=== PATIENT | female | born 1965 | race Caucasian/White ===

== ENCOUNTER 2017-03-19 18:08 | Emergency (ER) | payer OTHER ==
[~2017-03-19] VITALS: Ht 172.7 cm; Wt 75.0 kg
[2017-03-19 18:29] VITALS: BP 116/71; PULSE 81; RESP 16; O2SAT 98
--- NOTE | 2017-03-19 19:05 | ED.REPORT ---
HPI-Extremity Problem Lower Date of Service Mar 19, 2017 ED Provider: History of Present Illness: left knee swollen with pain behind left knee. no injuryon light duty primary care is emmaismael. 11/03. Has been on going for 2 days. 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 Ambulatory Status Independent Review of Systems Basic Review of Systems Eyes: Vision NL, No discharge : No dysuria, No frequency Psychiatric: Normal thought content Physical Exam Initial Vital Signs Vital Signs (First) Date Time Temp Pulse Resp B/P Pulse Ox O2 Delivery O2 Flow Rate FiO2 03/19/17 18:29 36.7 81 16 116/71 98 Room Air Initial VS: Reviewed, Vital signs normal General/Constitutional: Well-developed, Well-nourished Head / Eyes: Atraumatic, Normocephalic, PERRL ENT: Mucous membranes moist, Conjunctiva normal, No scleral icterus Neck: Supple, Non-tender, Full range of motion Respiratory: Breath sounds normal, Clear to auscultation, No respiratory distress Cardiovascular: Regular rate & rhythm, Heart sounds normal, Intact distal pulses Abdomen / GI: Soft, Non-tender, No guarding, No rebound, No distention Back: No CVA tenderness Lymphatic: No lymphadenopathy Upper Extremities: Vascular intact, Neuro intact, No swelling, No tenderness Skin: Warm, Dry, No cyanosis Neurologic: Alert, Oriented, Nonfocal Psychiatric: Mood/affect normal, Behavior normal, Normal thought content left knee with palpable swelling in posterior of knee with small extension into medial muscle compartment General/Constitutional: Awake, Alert, No acute distress Respiratory / Chest: Atraumatic, Breath sounds NL, Breath sounds = bilat, No respiratory distress Interpretation & Diagnostics US Soft Tissue/Musculoskeletal TECHNIQUE: Real-time imaging, as well as color and pulse Doppler interrogation, were performed of the lower extremity deep veins from the inguinal ligament to the popliteal fossa. COMPARISON: None. FINDINGS: The deep veins are normally compressible, and free of intraluminal thrombus. Color and pulse Doppler demonstrate normal phasic intraluminal flow. There is normal augmentation response to distal compression maneuver. Heteroechogenicity in the popliteal fossa is present measuring 5.2 x 3.0 x 1.4 cm. IMPRESSION: No deep venous cyst. Mclaughlin cyst, likely complex is noted. Dictated by: Monie Lundy M.D. on 03/19/2017 at 19:18 Approved by: Monie Lundy M.D. on 03/19/2017 at 19:19 Re-Eval/Medical Decision Med Decision/Clinical Course 52 year old female presents with swelling in left knee and lower leg. Ongoing for 2 days. Denies injury. US indicates a mclaughlin's cyst. No sign of clot formation. Discharge & Departure Impression: Primary Impression: Mclaughlin's cyst of knee Laterality: left Qualified Code: M71.22 - Synovial cyst of popliteal space [ Mclaughlin], left knee Disposition: Home Patient Instructions: Bakers Cyst (ED) Additional Instructions: The ultrasound shows that you have a Mclaughlin's cyst of the knee. It does not show any sign of a clot. Use ibuprofen 800 mg 3 times a day for 7 days. Elevate the leg as much as possible. Use ice 15 minutes on and 15 minutes off for 4 to 5 days. Return if the area gets red liike a sunburn or hot like a sunburn. Please call your ortho provider to see if they can do an injection in the knee. I am sorry this is happening. Referrals: Raffy Delarosa MD (PCP) EDSupervising Provider for APC: Hansel Meneses MD Attending Statement I saw and evaluated the patient in conjunction with the BENDING PRESS OPERATOR. I agree with the plan and findings as documented above. In brief, 52-year-old female presenting to the ED for evaluation of left knee pain. Well appearing, no acute distress. Nonlabored respirations. Good peripheral perfusion. Neurovascularly intact. Mclaughlin's cyst on ultrasound. Given above, plan discharge home w/ careful return precautions, close outpatient follow up. Patient agreeable to plan as stated, no further questions. copies to: Raffy Delarosa MD, [facility] Mar 19, 2017 19:05 Hansel Meneses MD Mar 19, 2017 19:34
--- NOTE | 2017-03-19 19:21 | DRSVH ---
PROCEDURE: US VEINOUS LEG DUPLEX UNILATERAL, LEFT INDICATIONS: left leg swelling TECHNIQUE: Real-time imaging, as well as color and pulse Doppler interrogation, were performed of the lower extr emity deep veins from the inguinal ligament to the popliteal fossa. COMPARISON: None. FINDINGS: The deep veins are normally compressible, and free of intraluminal thrombus. Color and pu lse Doppler demonstrate normal phasic intraluminal flow. There is normal augmentation response to di stal compression maneuver. Heteroechogenicity in the popliteal fossa is present measuring 5.2 x 3.0 x 1.4 cm. IMPRESSION: No deep venous cyst. Mclaughlin cyst, likely complex is noted. Dictated by: Monie Lundy M.D. on 03/19/2017 at 19:18 Approved by: Monie Lundy M.D. on 03/19/2017 at 19:19
[2017-03-19 20:02] VITALS: BP 116/75; PULSE 86; RESP 18; O2SAT 92
== END 2017-03-19 20:04 | disposition home or self-care (01) ==
LOC: SED 18:08
DX: M71.22 Synovial cyst of popliteal space [Baker], left knee (principal); Z88.0 Allergy status to penicillin; Z88.2 Allergy status to sulfonamides